=== PATIENT | female | born 1960 | race American Indian/Alaskan Native ===

== ENCOUNTER 2019-12-02 10:25 | Observation (INO) | payer MEDICARE ==
[2019-12-02] MEDS ORDERED: SODIUM CHLORIDE 0.9% 1000 ML 1,000 ML IV ONE (11:32)
--- NOTE | 2019-12-02 11:32 | Emergency Department Report ---
HPI - General Chief Complaint: Upper Respiratory Infection Time Seen by Provider: 12/02/19 11:04 - HPI HPI: Room 25 The patient is a 59-year-old female present with a chief complaint of cough and shortness of breath. The patient states 5 weeks ago she was "sick" which included a dry cough and body aches. The patient states her symptoms lasted for approximately 2 weeks and she was told to self quarantine but not tested for COVID-19. Patient states other people living in the home eventually became sick after her illness. Approximate 2 days ago the patient states she was crying inconsolably and ordered something to the effect of "I wish you at all and." She states her ex- called police believing that she had suicidal ideation. Patient was taken to [facility] and placed under 1013. At intake the patient was noted to be febrile (temperature unknown) and complained of shortness of breath for the past 3 to 4 days. Patient states she has had a cough that is occasionally been productive of yellow sputum but mostly dry. Patient also complains of body aches. ED Past Medical Hx - Past Medical History Previous Medical History?: Yes Hx Arthritis: Yes Hx Seizures: Yes Hx Kidney Stones: Yes Additional medical history: Lupus. Fibromyalgia. Chronic pain syndrome - Surgical History Additional Surgical History: Knee surgery, - Family History Family history: no significant - Social History Smoking Status: Current Every Day Smoker (Vape) Substance Use Type: None (Denies illicit drug use) ED Review of Systems ROS: Stated complaint: POSS COVID Other details as noted in HPI Constitutional: fever Eyes: denies: eye pain ENT: denies: throat pain Respiratory: cough, shortness of breath Cardiovascular: denies: chest pain Endocrine: no symptoms reported Gastrointestinal: denies: abdominal pain Genitourinary: denies: dysuria Musculoskeletal: arthralgia, myalgia Neurological: denies: headache Physical Exam - Physical Exam Vital Signs: Vital Signs 12/02/19 12/02/19 10:58 11:04 Temperature 98.4 F Pulse Rate 103 H Respiratory 16 16 Rate Blood Pressure 132/80 O2 Sat by Pulse 98 96 Oximetry Physical Exam: GENERAL: The patient is well-developed well-nourished female lying on stretcher not appearing to be in acute distress. Patient has wrapped herself in a sheet HEENT: Normocephalic. Atraumatic. Extraocular motions are intact. Patient has moist mucous membranes. NECK: Supple. Trachea midline CHEST/LUNGS: Clear to auscultation. There is no respiratory distress noted. HEART/CARDIOVASCULAR: Regular. There is tachycardia. There is no gallop rub or murmur. ABDOMEN: Abdomen is soft, nontender. Patient has normal bowel sounds. There is no abdominal distention. SKIN: There is no rash. There is no edema. NEURO: The patient is awake, alert, and oriented. The patient is cooperative. The patient has normal speech MUSCULOSKELETAL: There is no evidence of acute injury. ED Course Vital Signs 12/02/19 12/02/19 10:58 11:04 Temperature 98.4 F Pulse Rate 103 H Respiratory 16 16 Rate Blood Pressure 132/80 O2 Sat by Pulse 98 96 Oximetry - Reevaluation(s) Reevaluation #1: 12/02/19 12:40 Informed by nursing the patient desats to 91-93% upon ambulating 50 minutes. - Consultations Consultation #1: 12/02/19 12:42 Infectious disease paged 12/02/19 12:[address] Tucker-states that patient is discharged, do not send CO VID PCR if patient admitted to the hospital okay to send COVID PCR ED Medical Decision Making - Lab Data Result diagrams: 12/02/19 11:42 12/02/19 11:42 Laboratory Tests 12/02/19 12/02/19 12/02/19 11:42 11:42 11:42 WBC 6.6 RBC 4.38 Hgb 12.9 Hct 38.8 MCV 89 MCH 29 MCHC 33 RDW 14.3 Plt Count 262 Lymph % (Auto) 17.1 [place] % (Auto) 5.0 Eos % (Auto) 0.9 Baso % (Auto) 0.5 Lymph # 1.1 L [place] # 0.3 Eos # 0.1 Baso # 0.0 Seg Neutrophils % 76.5 H Seg Neutrophils # 5.1 D-Dimer 652.67 H Sodium 139 Potassium 4.0 Chloride 105.6 Carbon Dioxide 20 L Anion Gap 17 BUN 20 H Creatinine 0.9 Estimated GFR > 60 BUN/Creatinine Ratio 22 Glucose 119 H Calcium 9.4 Ferritin Lactate Dehydrogenase 176 C-Reactive Protein 0.60 Procalcitonin 12/02/19 12/02/19 11:42 11:42 WBC RBC Hgb Hct MCV MCH MCHC RDW Plt Count Lymph % (Auto) [place] % (Auto) Eos % (Auto) Baso % (Auto) Lymph # [place] # Eos # Baso # Seg Neutrophils % Seg Neutrophils # D-Dimer Sodium Potassium Chloride Carbon Dioxide Anion Gap BUN Creatinine Estimated GFR BUN/Creatinine Ratio Glucose Calcium Ferritin 30.9 Lactate Dehydrogenase C-Reactive Protein Procalcitonin < 0.05 - Radiology Data Radiology results: pending (CT chest), report reviewed (Chest x-ray), image reviewed (Chest x-ray) interpreted by me: Chest x-ray-no focal infiltrates, no pneumothorax Findings [facility] [address] [place] [address] XRay Report Signed Patient: MARISELA TRUJILLO MR#: [id number] 19 : 1960 Acc t:[id number] Age/Sex: 59 / F ADM Date: 12/02/19 Loc: ED Attending Dr: Ordering Physician: DEMIAN HOUSTON MD Date of Service: 12/02/19 Procedure(s): XR chest 1V ap Accession Number(s): [id number] cc: DEMIAN HOUSTON MD Fluoro Time In Minutes: CHEST 1 VIEW 12/02/2019 11:23 AM INDICATION / CLINICAL INFORMATION: Cough. COMPARISON: None available. FINDINGS: SUPPORT DEVICES: None. HEART / MEDIASTINUM: No significant abnormality. LUNGS / PLEURA: No significant pulmonary or pleural abnormality. No pneumothorax. ADDITIONAL FINDINGS: No significant additional findings. IMPRESSION: 1. No acute abnormality of the chest. Signer Name: Kevin Fajardo MD Signed: 12/02/2019 11:40 AM Workstation Name: [id number] Transcribed By: [place] Dictated By: Kevin Fajardo MD Electronically Authenticated By: Kevin Fajardo MD Signed Date/Time: 12/02/19 1140 DD/ 1139 TD/TT: - Differential Diagnosis Bronchitis, pneumonia, COVID-19, fibromyalgia Critical care attestation.: If time is entered above; I have spent that time in minutes in the direct care of this critically ill patient, excluding procedure time. ED Disposition Clinical Impression: Shortness of breath, Hypoxia, Cough Disposition: OP ADMIT IP TO THIS HOSP Is pt being admited?: Yes Does the pt Need Aspirin: Yes Condition: Fair Time of Disposition: 12:49 (Hospitalist notified (Dr Charles))
[2019-12-02] MEDS ORDERED: SODIUM CHLORIDE 0.9% 1000 ML 1,000 ML ONE (11:35)
--- NOTE | 2019-12-02 11:44 | XRay Report ---
CHEST 1 VIEW 12/02/2019 11:23 AM INDICATION / CLINICAL INFORMATION: Cough. COMPARISON: None available. FINDINGS: SUPPORT DEVICES: None. HEART / MEDIASTINUM: No significant abnormality. LUNGS / PLEURA: No significant pulmonary or pleural abnormality. No pneumothorax. ADDITIONAL FINDINGS: No significant additional findings. IMPRESSION: 1. No acute abnormality of the chest. Signer Name: Kevin Fajardo MD Signed: 12/02/2019 11:40 AM Workstation Name: [id number]
[2019-12-02 12:12] LABS: Basophils % (Auto) 0.5 % (0.0-1.8); Eosinophils # (Auto) 0.1 K/mm3 (0.0-0.4); Eosinophils % (Auto) 0.9 % (0.0-4.3); Hematocrit 38.8 % (30.3-42.9); Hemoglobin 12.9 gm/dl (10.1-14.3); Lymphocytes # (Auto) 1.1 K/mm3 (1.2-5.4); Lymphocytes % (Auto) 17.1 % (13.4-35.0); Mean Corpuscular HGB Conc 33 % (30-34); Mean Corpuscular Volume 89 fl (79-97); Monocytes # (Auto) 0.3 K/mm3 (0.0-0.8); Platelet Count 262 K/mm3 (140-440); Red Blood Count 4.38 M/mm3 (3.65-5.03); Red Cell Distribution Width 14.3 % (13.2-15.2)
[2019-12-02 12:31] LABS: BUN/Creatinine Ratio 22; Blood Urea Nitrogen 20 mg/dL (7-17); Calcium 9.4 mg/dL (8.4-10.2); Hemolysis Index 3
--- NOTE | 2019-12-02 12:45 | History and Physical Report ---
History of Present Illness Chief complaint: I feel sick, I cannot breathe, I feel weak History of present illness: 59 YO Female with OA, Seizure Disorder, SLE, Fibromyalgia, Chronic Pain Syndrome, Nicotine Dependence presents to ED for evaluation. Patient states that she has experienced generalized weakness, fever, chills, body aches and a dry cough over the past 5 weeks with persistent symptoms over the past 2 weeks. Patient also reports subjective fever. Patient acknowledges multiple ill contacts with family members who have similar symptoms. Patient also acknowledges feeling depressed. Patient was found to be tearful over the past 2 days and reportedly stated to her "I wish I could just end it all" line placement was notified of the patient's potential suicidal ideation and the patient was transported to [facility] and subsequently probably placed under 1013. As per [facility] staff, the patient was found to have a fever. EMS was notified and upon arrival the patient was found to be in distress and was subsequently transported to [facility] for further care and evaluation. Patient seen and evaluated in the emergency department. Lab and imaging studies reviewed. Patient chest x-ray revealed bilateral infiltrates that are consistent with pneumonia. Patient was also found to have a pulse oximetry of 88% on room air with exertion with findings consistent with acute hypoxemic respiratory failure. Patient admitted to medical floor and initiated on pneumonia protocol and placed on supplemental oxygen. The patient's constellation of symptoms are suspicious for COVID-19 infection. Patient initiated on COVID-19 protocol. Infectious disease service consulted in the emergency department. Mental health consult placed in the emergency department. Patient denies suicidal ideation, h omicidal ideation at this time. Patient denies chest pain, palpitations, prolonged travel/immobility, unilateral leg swelling, individual/family history of DVT/PE/bleeding/blood clotting disorders, or recent ill contacts. No prior admission for review. All medication listed at time of admission have been reconciled. Advanced care planning conducted in ED. Past History Past Medical History: arthritis, seizures, other (See HPI) Past Surgical History: , total knee replacement Social history: , smoking Medications and Allergies Allergies Allergy/AdvReac Type Severity Reaction Status Date / Time erythromycin base Allergy Unknown Verified 12/02/19 11:04 Home Medications Medication Instructions Recorded Confirmed Last Taken Type Amitriptyline [Elavil] 50 mg PO TID 12/02/19 12/02/19 Unknown History Butalb/Acetaminophen/Caffeine 1 cap PO Q6HR PRN 12/02/19 12/02/19 Unknown History [Fioricet 50-300-40 mg CAP] DOXYCYCLINE Hyclate [Vibramycin] 100 mg PO Q12HR 12/02/19 12/02/19 Unknown Hist ory Dextroamphetamine/Amphetamine 20 mg PO DAILY 12/02/19 12/02/19 Unknown History [Dextroamp-Amphet ER 20 mg Cap] Hydroxychloroquine [Plaquenil] 200 mg PO BID 12/02/19 12/02/19 Unknown History Oxybutynin [Ditropan] 5 mg PO BID 12/02/19 12/02/19 Unknown History Oxycodone HCl [oxyCODONE] 10 mg PO Q6H PRN 12/02/19 12/02/19 Unknown History Pentosan Polysulfate Sodium 100 mg PO TID 12/02/19 12/02/19 Unknown History [Elmiron] busPIRone [Buspar] 10 mg PO BID 12/02/19 12/02/19 Unknown History traZODone [Desyrel] 200 mg PO QHS 12/02/19 12/02/19 Unknown History Review of Systems Constitutional: fever, fatigue, weakness, malaise, chronic pain, no poor appetite, no daytime sleepiness Ears, nose, mouth and throat: no ear pain, no ear discharge, no tinnitis, no decreased hearing, no nose pain Breasts: no change in shape, no swelling, no mass Cardiovascular: no chest pain, no orthopnea, no palpitations Respiratory: cough, cough with sputum, shortness of breath, no hemoptysis, no pleurisy Gastrointestinal: no nausea, no vomiting, no diarrhea Genitourinary Female: no pelvic pain, no flank pain, no dysuria, no urinary frequency, no urgency Rectal: no pain, no incontinence, no bleeding Musculoskeletal: no neck stiffness, no neck pain, no shooting arm pain Integumentary: no rash, no pruritis, no redness, no sores, no wounds Psychiatric: depression, hopelessness, anhedonia, no anxiety, no suicidal ideation Endocrine: no cold intolerance, no heat intolerance, no excessive thirst, no polydipsia, no weight change Hematologic/Lymphatic: no easy bruising, no easy bleeding, no lymphadenopathy Allergic/Immunologic: no urticaria, no allergic rhinitis, no wheezing, no persistent infections, no anaphylaxis Exam - Constitutional Vitals: Temp Pulse Resp BP Pulse Ox 98.4 F 103 H 16 132/80 96 12/02/19 10:58 12/02/19 10:58 12/02/19 11:04 12/02/19 10:58 12/02/19 11:04 General appearance: Present: mild distress - EENT Eyes: Present: PERRL ENT: hearing intact, clear oral mucosa - Neck Neck: Present: supple, normal ROM - Respiratory Respiratory effort: labored, accessory muscle use Respiratory: bilateral: diminished, rhonchi - Cardiovascular Heart Sounds: Present: S1 & S2. Absent: rub, click - Extremities Extremities: pulses symmetrical, No edema Peripheral Pulses: within normal limits - Abdominal General gastrointestinal: Present: soft, non-tender, non-distended, normal bowel sounds Female genitourinary: Present: normal - Integumentary Integumentary: Present: clear, warm, dry - Musculoskeletal Musculoskeletal: gait normal, strength equal bilaterally - Psychiatric Psychiatric: appropriate mood/affect, intact judgment & insight - Neurologic Neurologic: CNII-XII intact, moves all extremities Results - Labs CBC & Chem 7: 12/02/19 11:42 12/02/19 13:40 Labs: Abnormal lab results 12/02/19 12/02/19 12/02/19 Range/Units 11:42 11:42 11:42 Lymph # 1.1 L (1.2-5.4) K/mm3 Seg Neutrophils % 76.5 H (40.0-70.0) % D-Dimer 652.67 H (0-234) ng/mlDDU Carbon Dioxide 20 L (22-30) mmol/L BUN 20 H (7-17) mg/dL Glucose 119 H (65-100) mg/dL Assessment and Plan - Patient Problems (1) Pneumonia Current Visit: No Status: Acute Qualifiers: Laterality: bilateral Plan to address problem: Pneumonia protocol: IV antibiotic therapy, nebulizer therapy, pulse oximetry, chest x-ray, blood culture, supportive care. (2) Respiratory failure Current Visit: No Status: Acute Qualifiers: Chronicity: acute Respiratory failure complication: hypoxia Qualified Cod e(s): J96.01 - Acute respiratory failure with hypoxia Plan to address problem: Submental oxygen, pulse oximetry, pulmonary toilet, chest x-ray, treat pneumonia . Prone positioning while in bed. (3) Suspected COVID-19 virus infection Current Visit: No Status: Acute Plan to address problem: COVID-19 protocol: Infectious disease service consulted, ferritin, d-dimer, procalcitonin, LDH as per protocol. COVID-19 PCR ordered in the emergency department. (4) Psychosis Current Visit: No Status: Acute Qualifiers: Schizoaffective disorder type: other Plan to address problem: Suicidal ideation suspected: [address], mental health consulted in the emergency department. (5) Fibromyalgia Current Visit: No Status: Acute Plan to address problem: Continue Plaquenil, supportive care. Continue prehospital medication. Outpatient rheumatology follow-up. (6) SLE (systemic lupus erythematosus related syndrome) Current Visit: No Status: Acute Plan to address problem: Continue current medication, outpatient rheumatology follow-up. (7) Nicotine dependence unspecified, with withdrawal Current Visit: Yes Status: Acute Qualifiers: Nicotine product type: cigarettes Qualified Code(s): F17.213 - Nicotine dependence, cigarettes, with withdrawal Plan to address problem: Smoking cessation counseling, supportive care. +15 minutes. (8) DVT prophylaxis Current Visit: No Status: Acute Plan to address problem: SCD to bilateral lower extremities while in bed, patient is ambulatory. (9) Advance care planning Current Visit: No Status: Acute Plan to address problem: Advanced care planning conducted in ED, patient is full code, disease education conducted. Patient acknowledges understanding and agreement with care plan. +30 minutes.
[2019-12-02] MEDS ORDERED: ONDANSETRON 4 MG/2 ML INJ IV PRN (12:46)
[2019-12-02] MEDS ORDERED: ACETAMINOPHEN 325 MG TAB PO PRN (12:46)
[2019-12-02] MEDS ORDERED: HYDROcodone/ACETAMINOPHEN 5-325 MG TAB PO ONE (12:47)
[2019-12-02] MEDS ORDERED: fentaNYL 100 MCG/2 ML INJ IV ONE (12:52)
--- NOTE | 2019-12-02 13:47 | Cat Scan Report ---
CTA chest with contrast INDICATION : MAIN: Shortness of breath OMNIPAQUE 350 100ML . TECHNIQUE: Axial imaging performed through the chest, with contrast bolus timing set to maximize opa cification of the pulmonary arteries. 3-plane MIP reformatted images were obtained. All CT scans at this location are performed using CT dose reduction for ALARA by means of automated exposure control. 100 mL of intravenous contrast administered. COMPARISON: Chest x-ray from today FINDINGS: Bolus: Contrast bolus timing is adequate. PTE: No filling defect is present to suggest PTE. Mediastinum: Heart and great vessels appear normal. No pathologic mediastinal adenopathy. Lungs: Lungs are clear. Upper abdomen: Limited imaging of the upper abdomen shows nothing acute. Bones: Degenerative changes in the spine with nothing acute. IMPRESSION: Negative for PTE. Clear lungs. Signer Name: Esau Murillo MD Signed: 12/02/2019 1:43 PM Workstation Name: [id number]
[2019-12-02] MEDS ORDERED: cefTRIAXone/NS 2 GM/100 ML 2 GM/100 ML BAG IV SCH (14:00)
[2019-12-02 14:22] LABS: C-Reactive Protein 0.5 mg/dL (0.00-1.30)
[2019-12-02] MEDS ORDERED: cefTRIAXone/NS 2 GM/100 ML 2 GM/100 ML BAG IV ONE (15:13)
[2019-12-02 15:35] LABS: Free T4 (Free Thyroxine) 0.93 ng/dL (0.76-1.46)
[2019-12-02] MEDS ORDERED: BUTALB/ACETAMINOPHEN/CAFFEINE TAB PO PRN (15:44)
[2019-12-02] MEDS: AMITRIPTYLINE 25 MG TAB PO SCH ×2 (17:49→19:43)
[2019-12-02] MEDS: oxyCODONE 5 MG TAB PO PRN (17:50)
[2019-12-02] MEDS: HYDROXYCHLOROQUINE 200 MG TAB PO SCH (21:09)
[2019-12-02] MEDS: OXYBUTYNIN 5 MG TAB PO SCH (21:09)
[2019-12-02] MEDS ORDERED: traZODone 100 MG TAB PO SCH (22:00)
[2019-12-02] MEDS: busPIRone 10 MG TAB PO SCH (22:58)
[2019-12-03 05:28] LABS: Basophils # (Auto) 0.1 K/mm3 (0.0-0.1); Basophils % (Auto) 0.8 % (0.0-1.8); Eosinophils # (Auto) 0.1 K/mm3 (0.0-0.4); Eosinophils % (Auto) 1.7 % (0.0-4.3); Hematocrit 35.7 % (30.3-42.9); Hemoglobin 11.8 gm/dl (10.1-14.3); Mean Corpuscular HGB Conc 33 % (30-34); Mean Corpuscular Volume 89 fl (79-97); Monocytes # (Auto) 0.4 K/mm3 (0.0-0.8); Monocytes % (Auto) 6.5 % (0.0-7.3); Platelet Count 240 K/mm3 (140-440); Red Blood Count 4.01 M/mm3 (3.65-5.03); Red Cell Distribution Width 14.1 % (13.2-15.2)
[2019-12-03 05:55] LABS: BUN/Creatinine Ratio 20; Blood Urea Nitrogen 16 mg/dL (7-17); Calcium 8.6 mg/dL (8.4-10.2); Hemolysis Index 5
[2019-12-03] MEDS: oxyCODONE 5 MG TAB PO PRN ×2 (06:55→15:06)
--- NOTE | 2019-12-03 08:29 | Progress Note ---
Assessment and Plan Assessment and plan: 59 YO Female with OA, Seizure Disorder, SLE, Fibromyalgia, Chronic Pain Syndrome, Nicotine Dependence presents to ED for evaluation with cough and shortness of breath. Patient states that she has experienced generalized weakness, fever, chills, body aches and a dry cough over the past 5 weeks with persistent symptoms over the past 2 weeks. Patient also reports subjective fever. Patient acknowledges multiple ill contacts with family members who have similar symptoms. Patient also acknowledges feeling depressed. Patient was found to be tearful over the past 2 days and reportedly stated to her "I wish I could just end it all" line placement was notified of the patient's potential suicidal ideation and the patient was transported to [facility] and subsequently probably placed under 1013. As per [place] staff, the patient was found to have a fever. EMS was notified and upon arrival the patient was found to be in distress and was subsequently transported to [facility] for further care and evaluation. Patient seen and evaluated in the emergency department. Lab and imaging studies reviewed. Patient chest x-ray revealed bilateral infiltrates that are consistent with pneumonia. Patient was also found to have a pulse oximetry of 88% on room air with exertion with findings consistent with acute hypoxemic respiratory failure. * Patient admitted to medical floor and initiated on pneumonia protocol and placed on supplemental oxygen. The patient's constellation of symptoms are yan spicious for COVID-19 infection. Patient initiated on COVID-19 protocol. Infectious disease service consulted in the emergency department. Mental health consult placed in the emergency department. Patient denies suicidal ideation, homicidal ideation at this time. Patient denies chest pain, palp itations, prolonged travel/immobility, unilateral leg swelling, individual/family history of DVT/PE/bleeding/blood clotting disorders, or recent ill contacts. No prior admission for review. All medication listed at time of admission have been reconciled. Advanced care planning conducted in ED. CTA Chest : IMPRESSION: Negative for PTE. Clear lungs. CXR: Negative for acute disease Febrile illness now resolved. As it appears Depression with Sucidial ideation currently At [facility] Acute hypoxemic respiratory failure with Hypoxia -88% on room air on admission Suspected COVID 19- Low risk due to normal inflammatory markers and imaging studies OA, Seizure Disorder SLE Fibromyalgia Chronic Pain Syndrome Nicotine Dependence Plan Continue supportive care Submental oxygen, pulse oximetry, pulmonary toilet, chest x-ray, treat pneumonia. Prone positioning while in bed. COVID-19 protocol: Infectious disease service consulted, ferritin, d-dimer, procalcitonin, LDH as per protocol. COVID-19 PCR ordered in the emergency de partment. Pre/post ambulatory oxyimetry Suicidal ideation suspected: [address], mental health consulted in the emergency department. Continue Plaquenil, supportive care. Continue prehospital medication. Outpatient rheumatology follow-up. Continue current medication, outpatient rheumatology follow-up. Smoking cessation counseling, supportive care. +15 minutes. SCD to bilateral lower extremities while in bed, patient is ambulatory. Advanced care planning conducted in ED, patient is full code, disease education conducted. Patient acknowledges understanding and agreement with care Further disposition will depend on psych input and also pre-and post ambulatory oximetry. In addition to the COVID-19 test results. History Interval history: Patient seen and examined this morning very emotional reports that he works she was not suicidal that her ex- call the associate financial analyst and get her committed at a facility. She denies any shortness of breath at this time but reports cough. No other adverse event reported to me. Hospitalist Physical - Physical exam Narrative exam: VITAL SIGNS: Reviewed. GENERAL: The patient appears normally developed, Vital signs as documented. HEAD: No signs of head trauma. EYES: Pupils are equal. Extraocular motions intact. EARS: Hearing grossly intact. MOUTH: Oropharynx is normal. NECK: No adenopathy, no JVD. CHEST: Chest with clear breath sounds bilaterally. No wheezes, rales, or rhonchi. CARDIAC: Regular rate and rhythm. S1 and S2, without murmurs, gallops, or rubs. VASCULAR: No Edema. Peripheral pulses normal and equal in all extremities. ABDOMEN: Soft, non tender and non distended. No rebound or guarding, and no masses palpated. Bowel Sounds normal. MUSCULOSKELETAL: Good range of motion of all major joints. Extremities without clubbing, cyanosis or edema. NEUROLOGIC EXAM: Alert and oriented x 3 No focal sensory or strength deficits. Speech normal. Follows commands. PSYCHIATRIC: Mood normal. SKIN: detial exam as documented in skin assessment - Constitutional Vitals: Temp Pulse Resp BP Pulse Ox 98.4 F 93 H 20 100/64 94 12/03/19 04:41 12/03/19 04:41 12/03/19 06:55 12/03/19 04:41 12/03/19 04:41 General appearance: Present: mild distress Results - Labs CBC & Chem 7: 12/03/19 05:05 12/03/19 05:05 Labs: Laboratory Last Values WBC 6.6 K/mm3 (4.5-11.0) 12/03/19 05:05 RBC 4.01 M/mm3 (3.65-5.03) 12/03/19 05:05 Hgb 11.8 gm/dl (10.1-14.3) 12/03/19 05:05 Hct 35.7 % (30.3-42.9) 12/03/19 05:05 MCV 89 fl (79-97) 12/03/19 05:05 MCH 29 pg (28-32) 12/03/19 05:05 MCHC 33 % (30-34) 12/03/19 05:05 RDW 14.1 % (13.2-15.2) 12/03/19 05:05 Plt Count 240 K/mm3 (140-440) 12/03/19 05:05 Lymph % (Auto) 31.0 % (13.4-35.0) 12/03/19 05:05 [place] % (Auto) 6.5 % (0.0-7.3) 12/03/19 05:05 Eos % (Auto) 1.7 % (0.0-4.3) 12/03/19 05:05 Baso % (Auto) 0.8 % (0.0-1.8) 12/03/19 05:05 Lymph # 2.0 K/mm3 (1.2-5.4) 12/03/19 05:05 [place] # 0.4 K/mm3 (0.0-0.8) 12/03/19 05:05 Eos # 0.1 K/mm3 (0.0-0.4) 12/03/19 05:05 Baso # 0.1 K/mm3 (0.0-0.1) 12/03/19 05:05 Seg Neutrophils % 60.0 % (40.0-70.0) 12/03/19 05:05 Seg Neutrophils # 3.9 K/mm3 (1.8-7.7) 12/03/19 05:05 D-Dimer 590.68 ng/mlDDU (0-234) H 12/02/19 13:40 Sodium 141 mmol/L (137-145) 12/03/19 05:05 Potassium 3.6 mmol/L (3.6-5.0) 12/03/19 05:05 Chloride 108.8 mmol/L (98-107) H 12/03/19 05:05 Carbon Dioxide 17 mmol/L (22-30) L 12/03/19 05:05 Anion Gap 19 mmol/L 12/03/19 05:05 BUN 16 mg/dL (7-17) 12/03/19 05:05 Creatinine 0.8 mg/dL (0.7-1.2) 12/03/19 05:05 Estimated GFR > 60 ml/min 12/03/19 05:05 BUN/Creatinine Ratio 20 % 12/03/19 05:05 Glucose 100 mg/dL (65-100) 12/03/19 05:05 Calcium 8.6 mg/dL (8.4-10.2) 12/03/19 05:05 Ferritin 26.6 ng/mL (13.0-400.0) 12/02/19 13:40 Lactate Dehydrogenase 162 units/L (91-180) 12/02/19 13:40 C-Reactive Protein 0.50 mg/dL (0.00-1.30) 12/02/19 13:40 Procalcitonin < 0.05 ng/mL (<0.15) 12/02/19 13:40 TSH 0.319 mlU/mL (0.270-4.200) 12/02/19 11:42 Free T4 0.93 ng/dL (0.76-1.46) 12/02/19 11:42 Perez/IV: Voiding Method Toilet IV Catheter Type [Right INT / Saline Lock Antecubital] Active Medications - Current Medications Current Medications: Generic Name Dose Route Start Last Admin Trade Name Freq PRN Reason Stop Dose Admin Acetaminophen 650 mg 12/02/19 12:46 Tylenol PO Q4H PRN Pain MILD(1-3)/Fever >100.5/AQUINO Acetaminophen/Butalbital/Caffeine 1 tab 12/02/19 15:44 12/02/19 19:43 Fioricet PO 1 tab Q6H PRN Administration Headache Amitriptyline HCl 50 mg 12/02/19 16:00 12/02/19 19:43 Elavil PO 50 mg TID KIMO Administration Buspirone HCl 10 mg 12/02/19 22:00 12/02/19 22:58 Buspar PO 10 mg BID KIMO Administration Hydroxychloroquine Sulfate 200 mg 12/02/19 22:00 12/02/19 21:09 Plaquenil PO 200 mg BID KIMO Administration Ceftriaxone Sodium 2 gm in 100 mls @ 200 mls/hr 12/02/19 14:00 12/02/19 15:17 Rocephin/Ns 2 Gm/100 Ml IV 200 mls/hr Q24H KIMO Administration Protocol Miscellaneous Medication 20 mg 12/03/19 10:00 Dextroamphetamine/Amphetamine [Dextroamp-Amphet Er 20 Mg Cap] PO DAILY [facility] Ondansetron HCl 4 mg 12/02/19 12:46 Zofran IV Q8H PRN Nausea And Vomiting Oxybutynin Chloride 5 mg 12/02/19 22:00 12/02/19 21:09 Ditropan PO 5 mg BID KIMO Administration Oxycodone HCl 10 mg 12/02/19 15:42 12/03/19 06:55 Roxicodone PO 10 mg Q6H PRN Administration Pain, Moderate to Severe Sodium Chloride 10 ml 12/02/19 22:00 12/02/19 21:11 Sodium Chloride Flush Syringe 10 Ml IV 10 ml BID KIMO Administration Sodium Chloride 10 ml 12/02/19 12:46 Sodium Chloride Flush Syringe 10 Ml IV PRN PRN LINE FLUSH Trazodone HCl 200 mg 12/02/19 22:00 12/02/19 21:09 Desyrel PO 200 mg QHS KIMO Administration
[2019-12-03] MEDS ORDERED: ALBUTEROL 2.5 MG/3 ML NEBU IH PRN (08:34)
[2019-12-03] MEDS: AMITRIPTYLINE 25 MG TAB PO SCH ×2 (09:34→14:42)
[2019-12-03] MEDS: HYDROXYCHLOROQUINE 200 MG TAB PO SCH (09:34)
[2019-12-03] MEDS: OXYBUTYNIN 5 MG TAB PO SCH (09:34)
[2019-12-03] MEDS: busPIRone 10 MG TAB PO SCH (09:35)
[2019-12-03] MEDS ORDERED: busPIRone 10 MG TAB ONE (10:00)
[2019-12-03] MEDS ORDERED: AMPHETAMINE PO SCH (10:00)
[2019-12-03] MEDS ORDERED: [UNRECOGNIZED DRUG - OTHER] PO SCH (10:00)
[2019-12-03] MEDS ORDERED: DEXTROAMPHETAMINE PO SCH (10:00)
--- NOTE | 2019-12-03 11:50 | Consultation ---
History of Present Illness - Reason for Consult Consult date: 12/03/19 Reason for consult: Psych eval Requesting physician: LEON MEREDITH - Chief Complaint Chief complaint: I feel sick, I cannot breathe, I feel weak - History of Present Psychiatric Illness The patient is a 59yo disabled female with his of depression and multiple medical problems listed below. She was transferred from [place] (a psychiatric facility) for generalized weakness, fever, chills, body aches and a dry cough over the past 5 weeks with persistent symptoms over the past 2 weeks. Patient reportedly made suicidal statements and was admitted involuntarily to [place]. Psychiatry consult is requested to evaluate patient and recommend disposition. Patient seen by me via Telemed. She is alert, fully oriented, calm and pleasant. She reports that she was having a conversation with her ex- during which she she told her "i want to leave meaning I wanted to pack my crap and leave" She denies ever threatening to kill herself. Patient describes a good and stable mood, denies being depressed or excessively nervous. Patient eats and sleeps well. Patient denies panic attacks, recurrent nightmares or flashbacks. Patient denies symptoms suggestive of OCD or PTSD. Patient denies hallucinations, paranoia, thought interference and no features suggestive of hypomania or angel. She completely denies suicidal or homicidal thoughts. PAST PSYCHIATRIC HISTORY: Diagnoses: Mild depression Suicide attempts or Self-harm behavior: Patient denies Prior psychiatric hospitalizations: Patient denies Substance Abuse history: : Patient denies Outpatient treatment: No PAST MEDICAL HISTORY: OA, Seizure Disorder, SLE, Fibromyalgia, Chronic Pain Syndrome, Nicotine Dependence Family Psychiatric History None reported or documented SOCIAL HISTORY Marital Status: Living Arrangements: Ex- and daughter lives with her Employment Status: Disabled Access to guns/weapons: Patient denies REVIEW OF SYSTEMS Constitutional: Negative for weight loss ENT: Negative for stridor Respiratory: Negative for cough or hemoptysis All other systems reviewed and are negative MENTAL STATUS General Appearance and Behavior: age appropriate, good eye contact, cooperative with questioning and polite Cooperation: Cooperative Psychomotor Behavior: within normal limits Mood: OK Affect and affective range: Congruent with stated mood Thought Process: Fluent/Logical and Goal-directed Thought Content: Within reality Speech: Normal volume and Regular rate and rhythm Intellectual Functioning Average Suicidal Ideation: Denies SI Homicidal Ideation: Denies HI Impulse Control: intact Insight and Judgment: normal insight and judgment Memory: Normal Attention: Normal Orientation: alert and oriented Diagnosis: Major depressive disorder by history RECOMMENDATIONS MEDICATIONS: Continue home meds Risks, benefits and alternatives of medications discussed with the patient, questions answered and consent obtained from patient. PSYCHOTHERAPY: Supportive psychotherapy provided MEDICAL: Per primary team SNOW SHOVELER: May discontinue DISPOSITION: Per primary team; no indication for acute inpatient psychiatric hospitalization at this time LEGAL STATUS: 1013 rescinded FOLLOW-UP: Will sign off. Please contact with any questions and/or concerns. Medications and Allergies Allergies Allergy/AdvReac Type Severity Reaction Status Date / Time erythromycin base Allergy Unknown Verified 12/02/19 11:04 Home Medications Medication Instructions Recorded Confirmed Last Taken Type Amitriptyline [Elavil] 50 mg PO TID 12/02/19 12/02/19 Unknown History Butalb/Acetaminophen/Caffeine 1 cap PO Q6HR PRN 12/02/19 12/02/19 Unknown History [Fioricet 50-300-40 mg CAP] DOXYCYCLINE Hyclate [Vibramycin] 100 mg PO Q12HR 12/02/19 12/02/19 Unknown History Dextroamphetamine/Amphetamine 20 mg PO DAILY 12/02/19 12/02/19 Unknown History [Dextroamp-Amphet ER 20 mg Cap] Hydroxychloroquine [Plaquenil] 200 mg PO BID 12/02/19 12/02/19 Unknown History Oxybutynin [Ditropan] 5 mg PO BID 12/02/19 12/02/19 Unknown History Oxycodone HCl [oxyCODONE] 10 mg PO Q6H PRN 12/02/19 12/02/19 Unknown History Pentosan Polysulfate Sodium 100 mg PO TID 12/02/19 12/02/19 Unknown History [Elmiron] busPIRone [Buspar] 10 mg PO BID 12/02/19 12/02/19 Unknown History traZODone [Desyrel] 200 mg PO QHS 12/02/19 12/02/19 Unknown History Active Meds: Active Medications Acetaminophen (Tylenol) 650 mg PO Q4H PRN PRN Reason: Pain MILD(1-3)/Fever >100.5/AQUINO Acetaminophen/Butalbital/Caffeine (Fioricet) 1 tab PO Q6H PRN PRN Reason: Headache Last Admin: 12/02/19 19:43 Dose: 1 tab Documented by: Albuterol (Proventil) 2.5 mg IH Q4HRT PRN PRN Reason: Shortness Of Breath Albuterol/Ipratropium (Duoneb *Not For Prn Use*) 1 ampul IH Q6HRT [facility] Amitriptyline HCl (Elavil) 50 mg PO TID [facility] Last Admin: 12/03/19 09:34 Dose: 50 mg Documented by: Buspirone HCl (Buspar) 10 mg PO BID [facility] Last Admin: 12/03/19 09:35 Dose: 10 mg Documented by: Hydroxychloroquine Sulfate (Plaquenil) 200 mg PO BID [facility] Stop: 12/06/19 10:01 Last Admin: 12/03/19 09:34 Dose: 200 mg Documented by: Ceftriaxone Sodium (Rocephin/Ns 2 Gm/100 Ml) 2 gm in 100 mls @ 200 mls/hr IV Q24H [facility]; Protocol Last Admin: 12/02/19 15:17 Dose: 200 mls/hr Documented by: Miscellaneous Medication (Dextroamphetamine/Amphetamine [Dextroamp-Amphet Er 20 Mg Cap]) 20 mg PO DAILY [facility] Ondansetron HCl (Zofran) 4 mg IV Q8H PRN PRN Reason: Nausea And Vomiting Oxybutynin Chloride (Ditropan) 5 mg PO BID [facility] Last Admin: 12/03/19 09:34 Dose: 5 mg Documented by: Oxycodone HCl (Roxicodone) 10 mg PO Q6H PRN PRN Reason: Pain, Moderate to Severe Last Admin: 12/03/19 06:55 Dose: 10 mg Documented by: Sodium Chloride (Sodium Chloride Flush Syringe 10 Ml) 10 ml IV BID [facility] Last Admin: 12/03/19 09:36 Dose: 10 ml Documented by: Sodium Chloride (Sodium Chloride Flush Syringe 10 Ml) 10 ml IV PRN PRN PRN Reason: LINE FLUSH Trazodone HCl (Desyrel) 200 mg PO QHS [facility] Last Admin: 12/02/19 21:09 Dose: 200 mg Documented by: Mental Status Exam - Vital signs Last Vital Signs Temp 98.4 F 12/03/19 04:41 Pulse 93 H 12/03/19 04:41 Resp 20 12/03/19 06:55 BP 100/64 12/03/19 04:41 Pulse Ox 94 12/03/19 08:47 Results Result Diagrams: 12/03/19 05:05 12/03/19 05:05 Abnormal lab results 12/02/19 12/02/19 12/02/19 Range/Units 11:42 11:42 11:42 Lymph # 1.1 L (1.2-5.4) K/mm3 Seg Neutrophils % 76.5 H (40.0-70.0) % D-Dimer 652.67 H (0-234) ng/mlDDU Chloride (98-107) mmol/L Carbon Dioxide 20 L (22-30) mmol/L BUN 20 H (7-17) mg/dL Glucose 119 H (65-100) mg/dL 12/02/19 12/02/19 12/03/19 Range/Units 13:40 13:40 05:05 Lymph # (1.2-5.4) K/mm3 Seg Neutrophils % (40.0-70.0) % D-Dimer 590.68 H (0-234) ng/mlDDU Chloride 108.8 H (98-107) mmol/L Carbon Dioxide 17 L (22-30) mmol/L BUN (7-17) mg/dL Glucose 109 H (65-100) mg/dL All other labs normal.
[2019-12-03 12:13] VITALS: BP 111/70
--- NOTE | 2019-12-03 13:46 | Consultation ---
History of Present Illness - Reason for Consult Consult date: 12/03/19 COVID PUI Requesting physician: DEMIAN HOUSTON - History of Present Illness The patient is a 59-year-old female with osteoarthritis, fibromyalgia, SLE, seizure disorder, chronic pain syndrome was admitted to the hospital on 12/02/2019 with subjective fever, weakness, body aches and a dry cough going on for about 5 weeks prior to admission. Apparently, she felt depressed at home and expressed some suicidal thoughts and hence she was placed under 1013. Because she complained of a fever, concern for COVID was raised and patient was sent to the emergency room here. Upon evaluation, patient has been afebrile, not hypoxic, remains on room air. Chest x-ray showed no pneumonia, CTA chest showed no PE or pneumonia. Infectious diseases was consulted by the emergency room to evaluate for possible COVID. Review of Systems: reviewed in the chart, unable to obtain directly due to PPE shortage and preservation Past History Past Medical History: arthritis, seizures, other (See HPI) Past Surgical History: , total knee replacement Social history: , smoking Medications and Allergies Allergies Allergy/AdvReac Type Severity Reaction Status Date / Time erythromycin base Allergy Unknown Verified 12/02/19 11:04 Home Medications Medication Instructions Recorded Confirmed Last Taken Type Amitriptyline [Elavil] 50 mg PO TID 12/02/19 12/02/19 Unknown History Butalb/Acetaminophen/Caffeine 1 cap PO Q6HR PRN 12/02/19 12/02/19 Unknown History [Fioricet 50-300-40 mg CAP] DOXYCYCLINE Hyclate [Vibramycin] 100 mg PO Q12HR 12/02/19 12/02/19 Unknown History Dextroamphetamine/Amphetamine 20 mg PO DAILY 12/02/19 12/02/19 Unknown History [Dextroamp-Amphet ER 20 mg Cap] Hydroxychloroquine [Plaquenil] 200 mg PO BID 12/02/19 12/02/19 Unknown History Oxybutynin [Ditropan] 5 mg PO BID 12/02/19 12/02/19 Unknown History Oxycodone HCl [oxyCODONE] 10 mg PO Q6H PRN 12/02/19 12/02/19 Unknown History Pentosan Polysulfate Sodium 100 mg PO TID 12/02/19 12/02/19 Unknown History [Elmiron] busPIRone [Buspar] 10 mg PO BID 12/02/19 12/02/19 Unknown History traZODone [Desyrel] 200 mg PO QHS 12/02/19 12/02/19 Unknown History Active Meds: Active Medications Acetaminophen (Tylenol) 650 mg PO Q4H PRN PRN Reason: Pain MILD(1-3)/Fever >100.5/AQUINO Acetaminophen/Butalbital/Caffeine (Fioricet) 1 tab PO Q6H PRN PRN Reason: Headache Last Admin: 12/02/19 19:43 Dose: 1 tab Documented by: Albuterol (Proventil) 2.5 mg IH Q4HRT PRN PRN Reason: Shortness Of Breath Albuterol/Ipratropium (Duoneb *Not For Prn Use*) 1 ampul IH Q6HRT [facility] Amitriptyline HCl (Elavil) 50 mg PO TID [facility] Last Admin: 12/03/19 09:34 Dose: 50 mg Documented by: Buspirone HCl (Buspar) 10 mg PO BID [facility] Last Admin: 12/03/19 09:35 Dose: 10 mg Documented by: Hydroxychloroquine Sulfate (Plaquenil) 200 mg PO BID [facility] Stop: 12/06/19 10:01 Last Admin: 12/03/19 09:34 Dose: 200 mg Documented by: Ceftriaxone Sodium (Rocephin/Ns 2 Gm/100 Ml) 2 gm in 100 mls @ 200 mls/hr IV Q24H [facility]; Protocol Last Admin: 12/02/19 15:17 Dose: 200 mls/hr Documented by: Miscellaneous Medication (Dextroamphetamine/Amphetamine [Dextroamp-Amphet Er 20 Mg Cap]) 20 mg PO DAILY [facility] Ondansetron HCl (Zofran) 4 mg IV Q8H PRN PRN Reason: Nausea And Vomiting Oxybutynin Chloride (Ditropan) 5 mg PO BID [facility] Last Admin: 12/03/19 09:34 Dose: 5 mg Documented by: Oxycodone HCl (Roxicodone) 10 mg PO Q6H PRN PRN Reason: Pain, Moderate to Severe Last Admin: 12/03/19 06:55 Dose: 10 mg Documented by: Sodium Chloride (Sodium Chloride Flush Syringe 10 Ml) 10 ml IV BID [facility] Last Admin: 12/03/19 09:36 Dose: 10 ml Documented by: Sodium Chloride (Sodium Chloride Flush Syringe 10 Ml) 10 ml IV PRN PRN PRN Reason: LINE FLUSH Trazodone HCl (Desyrel) 200 mg PO QHS [facility] Last Admin: 12/02/19 21:09 Dose: 200 mg Documented by: Physical Examination - Physical Exam Narrative exam: Physical Exam (reviewed in chart due to PPE conservation) Constitutional: limited due to PPE conservation strategy Head, Ears, Nose: limited due to PPE conservation strategy Eyes: limited due to PPE conservation strategy Neck: limited due to PPE conservation strategy Oral: limited due to PPE conservation strategy Cardiovascular: limited due to PPE conservation strategy Respiratory: limited due to PPE conservation strategy GI: limited due to PPE conservation strategy Musculoskeletal: limited due to PPE conservation strategy Skin: limited due to PPE conservation strategy Hem/Lymphatic: limited due to PPE conservation strategy Psych: limited due to PPE conservation strategy Neurological: limited due to PPE conservation strategy - Constitutional Vitals: Vital Signs Temp Pulse Resp BP Pulse Ox 98.3 F 98 H 20 111/70 92 12/03/19 11:40 12/03/19 11:40 12/03/19 11:40 12/03/19 11:40 12/03/19 11:40 Temperature -Last 24 Hours Temperature 98.3 F Temperature 98.4 F Temperature 97.7 F Temperature 98.8 F Results - Labs CBC & Chem 7: 12/03/19 05:05 12/03/19 05:05 Labs: Abnormal lab results 12/02/19 12/02/19 12/03/19 Range/Units 13:40 13:40 05:05 D-Dimer 590.68 H (0-234) ng/mlDDU Chloride 108.8 H (98-107) mmol/L Carbon Dioxide 17 L (22-30) mmol/L Glucose 109 H (65-100) mg/dL - Imaging and Cardiology Chest x-ray: report reviewed, image reviewed (no pneumonia) Assessment and Plan A/P: 59-year-old female with osteoarthritis, fibromyalgia, SLE, seizure disorder, chronic pain syndrome was admitted to the hospital on 12/02/2019 with subjective fever, weakness, body aches and a dry cough going on for about 5 weeks prior to admission. Apparently, she felt depressed at home and expressed some suicidal thoughts and hence she was placed under 1013: #Subjective fever, chills, shortness of breath: No evidence of pneumonia. No fever. #Suicidal ideation: On 1013. Recs: No antibiotics needed. No Plaquenil needed at this time. Inflammatory markers are also low Suspicion for COVID extremely low. However, if the COVID-19 test is needed prior to placement at a psychiatric facility, agree with obtaining the test Yasir Tucker MD, FACP [facility], [place], [facility] C: [phone] O: [phone] F: [phone]
[2019-12-03] MEDS ORDERED: IPRATROPIUM/ALBUTEROL SULFATE 3 ML AMPUL.NEB IH SCH (14:00)
--- NOTE | 2019-12-03 14:58 | Discharge Summary ---
Providers - Providers Date of Admission: 12/02/19 12:46 Attending physician: TRISTAN MONDRAGON MD 12/02/19 12:48 Consult to Physician [CONS] Urgent Comment: DR CELSO SOTELO W/DR TATUM @[id number] Consulting Provider: ALISE TATUM Physician Instructions: Reason For Exam: COVID-19 PUI 12/02/19 13:09 Consult to Mental Health [CONS] Routine Reason For Exam: suicidal ideation Hospitalization Condition: Fair Disposition: DC-01 TO HOME OR SELFCARE Exam - Constitutional Vitals: Temp Pulse Resp BP Pulse Ox 98.3 F 98 H 20 111/70 92 12/03/19 11:40 12/03/19 11:40 12/03/19 11:40 12/03/19 11:40 12/03/19 11:40 Plan Activity: advance as tolerated, fall precautions Diet: low fat Additional Instructions: Continue with wearing mask and social distention with self isolation until COVID-19 test results available. Follow up with: PEARL AKINS [Other] - 7 Days STU COLLIER MD [Staff Physician] - 7 Days
--- NOTE | 2019-12-03 15:58 | Vascular Lab Report ---
DUPLEX DOPPLER LOWER EXTREMITY VEINS, BILATERAL INDICATION: DVT. Acute bilateral lower extremity pain. TECHNIQUE: Duplex doppler imaging was performed through the veins of both lower extremities using venous rajesh lan and other maneuvers. COMPARISON: No relevant prior imaging study available. FINDINGS: Right Common femoral vein: Negative. Right Superficial femoral vein: Negative. Right Popliteal vein: Negative. Right Calf veins: Negative. Left Common femoral vein: Negative. Left Superficial femoral vein: Negative. Left Popliteal vein: Negative. Left Calf veins: Negative. Additional findings: None.. IMPRESSION: 1. No sonographic evidence for DVT in either lower extremity. Signer Name: Esau Murillo MD Signed: 12/03/2019 3:54 PM Workstation Name: [id number]
== END 2019-12-03 19:05 | disposition home or self-care (01) ==
LOC: ED 10:25 → 3A 12:46 → INTOOBSV 12:46 → 3A 13:47
PROVIDERS: ADMIT Internal Medicine; ATTEND Internal Medicine
DX: J96.01 Acute respiratory failure with hypoxia (principal); J18.9 Pneumonia, unspecified organism; F29 Unspecified psychosis not due to a substance or known physiological condition; M79.7 Fibromyalgia; M32.9 Systemic lupus erythematosus, unspecified; M19.90 Unspecified osteoarthritis, unspecified site; G40.909 Epilepsy, unspecified, not intractable, without status epilepticus; G89.4 Chronic pain syndrome; F32.9 Major depressive disorder, single episode, unspecified; F17.213 Nicotine dependence, cigarettes, with withdrawal; Z20.828 Contact with and (suspected) exposure to other viral communicable diseases; Z96.653 Presence of artificial knee joint, bilateral; Z79.899 Other long term (current) drug therapy; Z88.1 Allergy status to other antibiotic agents
CPT/HCPCS: 36415; 71045; 71275; 80048; 82728; 82947; 83615; 84145; 84439; 84443; 85025; 85379; 86140; 87635; 93970; 96365; 99285; G0378; J0696; J3010; J7030; Q9967